=== PATIENT | male | born 1965 | race Caucasian/White ===

== ENCOUNTER 2020-05-29 18:25 | Observation (INO) ==
[2020-05-29] MEDS ORDERED: MORPHINE 4 MG/1 ML VIAL IV STA ×2 (19:12→21:28)
[2020-05-29] MEDS ORDERED: ALUM/MAG/SIMETH/LIDO VISC 1:1 30 ML BOTTLE PO STA (19:12)
[2020-05-29] MEDS ORDERED: ASPIRIN 325 MG TABLET PO STA (19:12)
[2020-05-29] MEDS ORDERED: NITROGLYCERIN 2% OINT 1 INCH/GM PACK TOP STA (19:12)
[2020-05-29] MEDS ORDERED: ONDANSETRON 4 MG/2 ML VIAL IV STA (19:12)
[2020-05-29] MEDS ORDERED: ENOXAPARIN 100 MG/ML SYRINGE SUBCUT STA (19:12)
[2020-05-29 19:25] LABS: Basophils % 0.4 % (0.0-0.8); Eosinophils # 0.2 10*3/uL (0.0-0.87); Hematocrit 44.5 VOL% (42.0-52.0); Hemoglobin 15.8 GM/DL (14.0-18.0); Immature Granulocytes % 0.5 %; Immature Granulocytes Absolute 0.05 #; Lymphocytes # 2.1 10*3/uL (1.4-4.0); Lymphocytes % 20.5 % (21.2-54.2); Mean Corpuscular HGB Conc 35.5 GM/DL (32-36); Mean Corpuscular Volume 88.3 FL (87-102); Mean Platelet Volume 10.7 FL (9.6-12.0); Monocytes % 6.6 % (1.7-12.7); Platelet Count 221 T/CUMM (130-400); Red Blood Count 5.04 MC/CUMM (3.8-5.5); Red Cell Distribution Width 12.8 % (9.3-17.3); White Blood Count 10.3 T/CUMM (4-12)
[2020-05-29 19:36] LABS: INR 0.9; PT Patient Result 10.1 SECS (9.8-11.9)
[2020-05-29 20:00] LABS: Albumin 3.9 G/DL (3.4-5.0); Bilirubin,Total 0.5 MG/DL (0.2-1.0); Calcium 8.8 MG/DL (8.5-10.1); Osmolality,Calculated 278.7 MOS/KG (273-304)
[2020-05-29 20:11] LABS: Bilirubin,Urine Negative (Negative); Blood, Urine Negative (Negative); Glucose,Urine (UA) 50 mg/dL (Negative); Ketones,Urine Negative (Negative); Nitrite,Urine Negative (Negative); Protein,Urine Negative; RBC,Urine <1 /HPF (0-4); Squamous Epithelial Cell,Urine Occasional /HPF (0-10); Urine Appearance CLEAR (Clear); Urine Color Yellow (Yellow); Urine Specific Gravity 1.017 (1.001-1.035); Urine Urobilinogen < 2.0 EU/DL (0.2-1.0); WBC,Urine 2 /HPF (0-6)
[2020-05-29 20:17] LABS: Barbiturates Screen,Urine Negative (Negative); Benzodiazepines Screen,Urine Negative (Negative); Cannabinoid Screen,Urine Negative (Negative); Opiate Screen,Urine Positive (Negative); Phencyclidine Screen,Urine Negative (Negative)
[2020-05-29] MEDS ORDERED: GLUCAGON 1 MG VIAL IM PRN (20:57)
[2020-05-29] MEDS ORDERED: DEXTROSE 50% 25 GM/50 ML VIAL IV PRN (20:57)
[2020-05-29] MEDS ORDERED: ATORVASTATIN 80 MG TABLET PO SCH (22:00)
[2020-05-29] MEDS ORDERED: carvediloL 3.125 MG TABLET PO SCH (22:00)
[2020-05-30 01:43] LABS: Albumin 3.8 G/DL (3.4-5.0); Bilirubin,Total 0.5 MG/DL (0.2-1.0); Calcium 8.4 MG/DL (8.5-10.1); Osmolality,Calculated 275.8 MOS/KG (273-304); Potassium 4.3 MMOL/L (3.5-5.1); Risk Ratio 5.57; Thyroid Stimulating Hormone 3.85 uIU/ml (0.358-3.74); Total Protein 7.1 G/DL (6.4-8.2); VLDL CHOLESTEROL 165.4 MG/DL
[2020-05-30] MEDS ORDERED: ENOXAPARIN 120 MG/0.8 ML SYRINGE SUBCUT SCH (07:30)
[2020-05-30] MEDS ORDERED: ASPIRIN 325 MG TABLET PO SCH (09:00)
[2020-05-30] MEDS ORDERED: ASPIRIN EC 81 MG TABLET PO SCH (09:00)
[2020-05-30] MEDS ORDERED: carvediloL 6.25 MG TABLET PO SCH (09:00)
[2020-05-30 09:26] VITALS: BP 167/96
== END 2020-05-30 10:07 | disposition home or self-care (01) ==
LOC: EDBD → N.ED 18:25 → N.EDINP 18:25 → N.TELEN 05-30 00:11
PROVIDERS: ADMIT Internal Medicine Geriatric Medicine; ATTEND Internal Medicine Geriatric Medicine